=== PATIENT | male | born 1950 | race Caucasian/White ===

== ENCOUNTER 2019-04-10 12:39 | Emergency (ER) | payer MEDICARE ==
[~2019-04-10] VITALS: Ht 177.8 cm; Wt 73.7 kg
[2019-04-10 13:30] LABS: BASOPHILS % (AUTO) 0.5 % (0-1); EOSINOPHILS # (AUTO) 0.1 X10'3 (0-0.9); EOSINOPHILS % (AUTO) 1.3 % (0-6); HEMATOCRIT 42.6 % (42.0-52.0); HEMOGLOBIN 14.2 g/dl (14.0-17.9); LYMPHOCYTES # (AUTO) 1.5 X10'3 (1.1-4.8); LYMPHOCYTES % (AUTO) 17.8 % (21-51); MEAN CORPUSCULAR HEMOGLOBIN 32.4 PG (27.0-31.0); MEAN CORPUSCULAR HGB CONC 33.4 g/dL (33.0-36.5); MEAN CORPUSCULAR VOLUME 96.9 FL (78-98); MEAN PLATELET VOLUME 9.2 FL (7.4-10.4); MONOCYTES # (AUTO) 0.7 X10'3 (0-0.9); MONOCYTES % (AUTO) 8.7 % (2-12); NEUTROPHILS # (AUTO) 5.9 X10'3 (1.8-7.7); NEUTROPHILS % (AUTO) 71.7 % (42-75); PLATELET COUNT 224 X10'3 (140-440); RED BLOOD COUNT 4.39 X10'6 (4.70-6.10); RED CELL DISTRIBUTION WIDTH 13.2 % (11.5-14.5); WHITE BLOOD COUNT 8.3 X10'3 (4.5-11.0)
[2019-04-10 13:48] LABS: ALANINE AMINOTRANSFERASE 24 U/L (12-78); ALBUMIN 3.5 G/DL (3.4-5.0); ALKALINE PHOSPHATASE 82 IU/L (46-116); ANION GAP 9 (8-16); ASPARTATE AMINO TRANSFERASE 8 U/L (10-37); BILIRUBIN,TOTAL 0.3 MG/DL (0.1-1.0); BLOOD UREA NITROGEN 14 MG/DL (7-18); BUN/CREATININE RATIO 14.9 (5.4-32.0); CALCIUM 8.4 MG/DL (8.5-10.1); CHLORIDE 102 MMOL/L (99-107); CREATININE 0.94 MG/DL (0.60-1.10); GLUCOSE 334 MG/DL (70-104); LIPASE 113 U/L (73-393); POTASSIUM 4.2 MMOL/L (3.5-5.1); SODIUM 136 MMOL/L (135-145); TOTAL CARBON DIOXIDE 25.1 MMOL/L (24-32); eGFR 79 ML/MIN
[2019-04-10 14:45] LABS: CLARITY,URINE CLEAR (Clear); COLOR,URINE YELLOW (Yellow); GLUCOSE, URINE >=1000 mg/dl (Neg); KETONES,URINE NEGATIVE (Neg); LEUKOCYTE ESTERASE ,URINE NEGATIVE (Neg); NITRITES, URINE NEGATIVE (Neg); OCCULT BLOOD,URINE TRACE-INTACT (Neg); PH,URINE 5.5 (4.8-8.0); PROTEIN,URINE NEGATIVE (Neg); UA COLLECTION TYPE URINAL; UROBILINOGEN,URINE 0.2 E.U/dL (0.2-1.0)
[2019-04-10 14:57] LABS: SQUAMOUS EPITHELIAL CELL,UR FEW /LPF (FEW)
[2019-04-10 14:59] LABS: MUCUS STRANDS NONE SEEN /LPF (Neg)
[2019-04-10 15:00] LABS: BACTERIA,URINE FEW /HPF (Neg)
[2019-04-10 15:04] LABS: CAL OXALATE CRYSTALS 1+ /HPF (NEGATIVE)
[2019-04-10] MEDS ORDERED: DICY10CA88 PO (15:34)
[2019-04-10] MEDS ORDERED: LOPE2CAP PO (15:34)
[2019-04-10] MEDS ORDERED: FLO0.4C PO (15:34)
[2019-04-10 15:44] VITALS: BP 137/79
== END 2019-04-10 15:47 | disposition home or self-care (01) ==
LOC: EDBD 12:40 → ER 12:40
DX: R19.7 Diarrhea, unspecified (principal); R10.9 Unspecified abdominal pain; I10 Essential (primary) hypertension; E11.9 Type 2 diabetes mellitus without complications; G89.29 Other chronic pain; Z88.6 Allergy status to analgesic agent; Z79.899 Other long term (current) drug therapy
CPT/HCPCS: 36415; 80053; 81001; 83690; 85025; 85610; 87077; 87088; 87186; 99283

== ENCOUNTER 2022-02-19 16:47 | Emergency (ER) | payer OTHER, MEDICARE ==
[~2022-02-19] VITALS: Ht 175.3 cm; Wt 55.0 kg
[~2022-02-19 16:47] MED LIST: DICY10CA88 PO; LOPE2CAP PO
[2022-02-19 17:05] VITALS: BP 113/68
[2022-02-19] MEDS ORDERED: AMOX-117 PO (20:57)
== END 2022-02-19 19:51 | disposition left against medical advice (07) ==
LOC: ER 16:48
DX: S91.352A Open bite, left foot, initial encounter (principal); Z53.21 Procedure and treatment not carried out due to patient leaving prior to being seen by health care provider; W54.0XXA Bitten by dog, initial encounter; Y93.89 Activity, other specified; Y92.89 Other specified places as the place of occurrence of the external cause; Y99.8 Other external cause status
CPT/HCPCS: 73590; 73610; 99284

== ENCOUNTER 2022-02-19 20:03 | Emergency (ER) | payer OTHER, MEDICARE ==
[~2022-02-19] VITALS: Ht 175.3 cm; Wt 56.8 kg
[2022-02-19 20:11] VITALS: BP 145/76
[2022-02-19] MEDS ORDERED: amox tr/potassium clavulanate 875/125mg TAB PO ONE (20:55)
[2022-02-19] MEDS ORDERED: TETanus/Pertussis (Acell)/Diphther VAC/PF (Tdap-Adult) 0.5ml syringe IMVAC ONE (20:55)
[2022-02-19] MEDS ORDERED: AMOX-117 PO (20:57)
== END 2022-02-19 21:55 | disposition home or self-care (01) ==
LOC: ER 20:04
DX: S50.812A Abrasion of left forearm, initial encounter (principal); S81.831A Puncture wound without foreign body, right lower leg, initial encounter; I10 Essential (primary) hypertension; E11.9 Type 2 diabetes mellitus without complications; G89.29 Other chronic pain; Z88.8 Allergy status to other drugs, medicaments and biological substances; Z79.2 Long term (current) use of antibiotics; Z79.899 Other long term (current) drug therapy; W54.0XXA Bitten by dog, initial encounter; Y93.89 Activity, other specified; Y92.89 Other specified places as the place of occurrence of the external cause; Y99.8 Other external cause status
CPT/HCPCS: 90471; 90715; 99283; A6222; A6449

== ENCOUNTER 2022-02-27 19:38 | Emergency (ER) | payer OTHER, MEDICARE ==
[~2022-02-27] VITALS: Ht 172.7 cm; Wt 59.1 kg
[~2022-02-27 19:38] MED LIST changes: +AMOX-117 PO
[2022-02-27 22:30] VITALS: BP 160/81
[2022-02-27] MEDS ORDERED: normal saline 1000ML IV soln IV ONE (23:00)
[2022-02-27] MEDS ORDERED: vancomycin/NS 1 GM ADD-VANTAGE 250 ML IV ONE (23:00)
[2022-02-27] MEDS ORDERED: rifampin 300mg capsule PO SCH (23:00)
[2022-02-27 23:28] LABS: BASOPHILS % (AUTO) 0.4 % (0-1); EOSINOPHILS # (AUTO) 0.1 X10'3 (0-0.9); EOSINOPHILS % (AUTO) 0.8 % (0-6); HEMATOCRIT 41.5 % (42.0-52.0); HEMOGLOBIN 13.9 g/dl (14.0-17.9); LYMPHOCYTES # (AUTO) 1.6 X10'3 (1.1-4.8); LYMPHOCYTES % (AUTO) 15.9 % (21-51); MEAN CORPUSCULAR HEMOGLOBIN 32.7 PG (27.0-31.0); MEAN CORPUSCULAR HGB CONC 33.6 g/dL (33.0-36.5); MEAN CORPUSCULAR VOLUME 97.3 FL (78-98); MEAN PLATELET VOLUME 7.5 FL (7.4-10.4); MONOCYTES # (AUTO) 0.5 X10'3 (0-0.9); MONOCYTES % (AUTO) 5.1 % (2-12); NEUTROPHILS % (AUTO) 77.8 % (42-75); PLATELET COUNT 336 X10'3 (140-440); RED BLOOD COUNT 4.26 X10'6 (4.70-6.10); RED CELL DISTRIBUTION WIDTH 13.4 % (11.5-14.5); WHITE BLOOD COUNT 10.2 X10'3 (4.5-11.0)
[2022-02-27] MEDS ORDERED: RIFA300C9 PO (23:45)
[2022-02-27 23:49] LABS: ALANINE AMINOTRANSFERASE 31 U/L (12-78); ALBUMIN 3.7 G/DL (3.4-5.0); ALBUMIN/GLOBULIN RATIO 0.8 (1.1-1.5); ALKALINE PHOSPHATASE 92 IU/L (46-116); ANION GAP 6 (8-16); ASPARTATE AMINO TRANSFERASE 19 U/L (10-37); BILIRUBIN,TOTAL 0.3 MG/DL (0.1-1.0); BLOOD UREA NITROGEN 15 MG/DL (7-18); BUN/CREATININE RATIO 16.7 (5.4-32.0); CALCIUM 9.1 MG/DL (8.5-10.1); CHLORIDE 102 MMOL/L (99-107); GLUCOSE 148 MG/DL (70-104); HEMOGLOBIN A1C 8.4 % (4.5-6.2); POTASSIUM 4.8 MMOL/L (3.5-5.1); SODIUM 139 MMOL/L (135-145); TOTAL CARBON DIOXIDE 31.1 MMOL/L (24-32); TOTAL PROTEIN 8.2 G/DL (6.4-8.2); eGFR 83 ML/MIN
== END 2022-02-28 01:01 | disposition home or self-care (01) ==
LOC: ER 19:39
DX: L03.116 Cellulitis of left lower limb (principal); E11.42 Type 2 diabetes mellitus with diabetic polyneuropathy; I10 Essential (primary) hypertension; G89.29 Other chronic pain; Z88.8 Allergy status to other drugs, medicaments and biological substances; Z79.2 Long term (current) use of antibiotics; Z79.899 Other long term (current) drug therapy
CPT/HCPCS: 36415; 73590; 80053; 83036; 83605; 84145; 85025; 87040; 96365; 99284; J3370; J7030